=== PATIENT | female | born 1950 | race Caucasian/White ===

== ENCOUNTER 2017-07-07 14:25 | Outpatient (CLI) ==
[2016-06-02 01:35] VITALS: BMI 25.0
[2017-07-07 14:40] LABS: BASOPHILS % (AUTO) 0.3 % (0.0-3.0); EOSINOPHILS % (AUTO) 0.2 % (0.0-7.0); HEMATOCRIT 51.5 % (37.0-47.0); HEMOGLOBIN 18.4 g/dl (12.0-16.0); IMMATURE GRANULOCYTE % (AUTO) 0.3 % (0.0-5.0); LYMPHOCYTES # (AUTO) 2.3 K/uL (0.60-3.4); LYMPHOCYTES % (AUTO) 19.5 (10.0-50.0); MEAN CORPUSCULAR HEMOGLOBIN 31.9 pg (27.0-31.0); MEAN CORPUSCULAR HGB CONC 35.7 (31.8-35.4); MEAN CORPUSCULAR VOLUME 89.4 fl (81.0-99.0); MONOCYTES # (AUTO) 0.9 K/uL (0.4-2.0); NEUTROPHILS # (AUTO) 8.4 K/ul (2.0-6.9); NEUTROPHILS % (AUTO) 71.7; PLATELET COUNT 278 10^3/uL (140-440); RED BLOOD COUNT 5.76 10^6/ul (4.20-5.40); WHITE BLOOD COUNT 11.69 K/ul (4.6-10.2)
[2017-07-07 14:43] LABS: BILIRUBIN,URINE 1+ (NEGATIVE); KETONES,URINE Negative (NEGATIVE); LEUKOCYTE ESTERASE ,URINE Negative (NEGATIVE); NITRITE,URINE Negative (NEGATIVE); PROTEIN,URINE 3+ (NEGATIVE); URINE, BLOOD 3+ (NEGATIVE)
[2017-07-07 14:45] LABS: ADD URINE MICROSCOPIC YES
[2017-07-07 14:49] LABS: BACTERIA,URINE TRACE (NOT PRESENT)
[2017-07-07 15:00] LABS: ALBUMIN 4.3 g/dL (3.4-5.0); ALBUMIN/GLOBULIN RATIO 1.08; ANION GAP 17.5; BILIRUBIN,TOTAL 0.73 mg/dL (0.00-1.20); BUN/CREATININE RATIO 32.92; CALCIUM 9.5 mg/dL (8.2-10.2); CREATININE 0.82 mg/dL (0.60-1.30); POTASSIUM 3.5 mmol/L (3.5-5.10); TOTAL PROTEIN 8.3 g/dL (5.8-8.1)
--- NOTE | 2017-07-07 15:46 | DI ---
EXAM: CHEST FRONTAL AND LATERAL VIEWS HISTORY: Cough. COMPARISON: 06/04/2016 FINDINGS: Heart size remains within normal limits. Lungs are mildly hyperinflated. No acute infilt rates are seen. No vascular congestion. There is no consolidation, visible pleural fluid or pneumo thorax. Bones reveal no acute fracture. IMPRESSION: No acute cardiopulmonary process.
== END 2017-07-07 14:26 | disposition home or self-care (01) ==
LOC: RAD 14:25
PROVIDERS: ATTEND Nurse Practitioner Family
DX: J98.8 Other specified respiratory disorders (principal); J41.1 Mucopurulent chronic bronchitis; R11.2 Nausea with vomiting, unspecified
CPT/HCPCS: 36415; 80053; 81001; 82150; 83690; 85025

== ENCOUNTER 2017-07-14 13:26 | Outpatient (CLI) ==
[2016-06-02 01:35] VITALS: BMI 25.0
[2017-07-14 13:42] LABS: BASOPHILS # (AUTO) 0.1 K/uL (0-0.2); BASOPHILS % (AUTO) 0.5 % (0.0-3.0); EOSINOPHILS # (AUTO) 0.1 K/ul (0.0-0.7); EOSINOPHILS % (AUTO) 0.8 % (0.0-7.0); HEMATOCRIT 43.4 % (37.0-47.0); HEMOGLOBIN 15.6 g/dl (12.0-16.0); IMMATURE GRANULOCYTE % (AUTO) 0.4 % (0.0-5.0); LYMPHOCYTES # (AUTO) 2.9 K/uL (0.60-3.4); LYMPHOCYTES % (AUTO) 28.6 (10.0-50.0); MEAN CORPUSCULAR HEMOGLOBIN 31.7 pg (27.0-31.0); MEAN CORPUSCULAR HGB CONC 35.9 (31.8-35.4); MEAN CORPUSCULAR VOLUME 88.2 fl (81.0-99.0); MONOCYTES # (AUTO) 0.8 K/uL (0.4-2.0); NEUTROPHILS # (AUTO) 6.2 K/ul (2.0-6.9); NEUTROPHILS % (AUTO) 61.7; PLATELET COUNT 255 10^3/uL (140-440); RED BLOOD COUNT 4.92 10^6/ul (4.20-5.40)
[2017-07-14 13:58] LABS: ALBUMIN 3.6 g/dL (3.4-5.0); ALBUMIN/GLOBULIN RATIO 1.24; ANION GAP 13.6; BILIRUBIN,TOTAL 0.51 mg/dL (0.00-1.20); BUN/CREATININE RATIO 30.98; CALCIUM 9.5 mg/dL (8.2-10.2); CREATININE 0.71 mg/dL (0.60-1.30); POTASSIUM 3.6 mmol/L (3.5-5.10); TOTAL PROTEIN 6.5 g/dL (5.8-8.1)
== END 2017-07-14 13:27 | disposition home or self-care (01) ==
LOC: LAB 13:26
PROVIDERS: ATTEND Emergency Medicine
DX: I10 Essential (primary) hypertension (principal)
CPT/HCPCS: 36415; 80053; 85025

== ENCOUNTER 2018-09-08 10:16 | Outpatient (CLI) ==
[2016-06-02 01:35] VITALS: BMI 25.0
== END 2018-09-08 10:17 | disposition home or self-care (01) ==
LOC: RHC-LAB 10:16
PROVIDERS: ATTEND Nurse Practitioner Family
DX: I10 Essential (primary) hypertension (principal)
CPT/HCPCS: 36415; 80053; 80061; 84443; 85025

== ENCOUNTER 2019-05-02 09:24 | Outpatient (CLI) | payer OTHER ==
[2016-06-02 01:35] VITALS: BMI 25.0
== END 2019-05-02 09:25 | disposition home or self-care (01) ==
LOC: RHC-LAB 09:24
PROVIDERS: ATTEND Nurse Practitioner Family
DX: J44.9 Chronic obstructive pulmonary disease, unspecified (principal); E78.5 Hyperlipidemia, unspecified; I10 Essential (primary) hypertension
CPT/HCPCS: 36415; 80053; 80061; 85025